=== PATIENT | male | born 1995 | race African-American/Black ===

== ENCOUNTER 2016-11-04 16:10 | Emergency (ER) | payer BC ==
[~2016-11-04] VITALS: Ht 172.7 cm; Wt 79.4 kg
[2016-11-04 17:10] VITALS: BP 161/81
--- NOTE | 2016-11-04 17:21 | PHYS DOC ---
Adult General Chief Complaint Chief Complaint: LACERATION/AVULSION [facility] HPI Patient is a 21 year old male presents to the emergency department with complaints laceration to the left lower extremity. He states he was helping his mother when she dropped the grill and it struck him on the left anterior lower extremity. He sustained a laceration. Hemostasis obtained prior arrival. No complaints with ambulation, no pain with ambulation Review of Systems Review of Systems Constitutional: Denies fever or chills [] Eyes: Denies change in visual acuity, redness, or eye pain [] HENT: Denies nasal congestion or sore throat [] Respiratory: Denies cough or shortness of breath [] Cardiovascular: No additional information not addressed in HPI [] GI: Denies abdominal pain, nausea, vomiting, bloody stools or diarrhea [] : Denies dysuria or hematuria [] Musculoskeletal: Denies back pain or joint pain [] Integument: Laceration Neurologic: Denies headache, focal weakness or sensory changes [] Endocrine: Denies polyuria or polydipsia [] Current Medications Current Medications Current Medications Medications (Trade) Dose Ordered Sig/Jack Start Time Stop Time Status Last Admin Dose Admin Lidocaine/Sodium Bicarbonate (Buffered Lidocaine 1%) 20 ml 1X ONCE 11/04/16 17:30 11/04/16 17:31 DC Allergies Allergies Allergies Coded Allergies Type Severity Reaction Last Updated Verified No Known Drug Allergies 11/04/16 No Physical Exam Physical Exam Constitutional: Well developed, well nourished, no acute distress, non-toxic appearance. [] HENT: Normocephalic, atraumatic, bilateral external ears normal, oropharynx moist, no oral exudates, nose normal. [] Eyes: PERRLA, EOMI, conjunctiva normal, no discharge. [] Neck: Normal range of motion, no tenderness, supple, no stridor. [] Cardiovascular:Heart rate regular rhythm, no murmur [] Lungs & Thorax: Bilateral breath sounds clear to auscultation [] Abdomen: Bowel sounds normal, soft, no tenderness, no masses, no pulsatile masses. [] Skin: Warm, dry, no erythema, no rash. [] Back: No tenderness, no CVA tenderness. [] Extremities: No tenderness, left lower extremity: Anterior tibia, 1.5 cm partial thickness laceration. Full range of motion of distal extremity without difficulty. Full range of motion knee without difficulty. Neurovascular intact distally. Neurologic: Alert and oriented X 3, normal motor function, normal sensory function, no focal deficits noted. [] Psychologic: Affect normal, judgement normal, mood normal. [] EKG EKG [] Radiology/Procedures Radiology/Procedures Procedure note: Laceration anesthetized with 1% buffered lidocaine. 3 mL. Wound was cleansed with Betadine normal saline, copiously irrigated, explored for foreign body none of which were noted. Wound edges approximated with 3 matty. Patient tolerated procedure well. Wound dressed with bulky bandage and dressing. [] Course & Med Decision Making Course & Med Decision Making Pertinent Labs and Imaging studies reviewed. (See chart for details) [] Dragon Disclaimer Dragon Disclaimer This electronic medical record was generated, in whole or in part, using a voice recognition dictation system. Departure Departure Impression: Primary Impression: Laceration of left leg Disposition: HOME, SELF-CARE Condition: STABLE Referrals: NO PCP (PCP) [facility] Patient Instructions: Laceration Care, Adult Additional Instructions: You may use ibuprofen or Tylenol [id number] as labeled and is indicated for symptom management. Follow-up with the primary care provider in 10 days for suture removal. Problem Qualifiers Primary Impression: Laceration of left leg Encounter type: initial encounter Qualified Codes: S81.812A - Laceration without foreign body, left lower leg, initial encounter OSWALDO TIDWELL APRN Nov 04, 2016 17:21
[2016-11-04] MEDS ORDERED: LIDOCAINE 1% / SOD BICARB 8.4% 20 ML VIAL. IJ ONE (17:30)
== END 2016-11-04 17:43 | disposition home or self-care (01) ==
LOC: ER 16:10
DX: S81.812A Laceration without foreign body, left lower leg, initial encounter (principal); W22.8XXA Striking against or struck by other objects, initial encounter; Y93.89 Activity, other specified; Y92.89 Other specified places as the place of occurrence of the external cause; Y99.8 Other external cause status
CPT/HCPCS: 12001; 99283-25